=== PATIENT | female | born 1975 | race Caucasian/White ===

== ENCOUNTER 2021-05-19 19:18 | Emergency (ER) | payer OTHER ==
[2021-05-19 19:42] VITALS: BP 138/92; PULSE 82; TEMP 98.7; BMI 37.5
[2021-05-19] MEDS ORDERED: NAPROXEN 500 MG TABLET PO ONE (21:15)
[2021-05-19] MEDS ORDERED: NAPROXEN 500 MG TABLET ONE (21:20)
== END 2021-05-19 21:24 | disposition home or self-care (01) ==
LOC: FER 19:18
DX: S46.912A Strain of unspecified muscle, fascia and tendon at shoulder and upper arm level, left arm, initial encounter (principal); X50.0XXA Overexertion from strenuous movement or load, initial encounter
CPT/HCPCS: 73030-TC-LT-FY; 99283-25

== ENCOUNTER 2021-12-19 13:30 | Emergency (ER) | payer OTHER ==
[2021-12-19] MEDS ORDERED: KETOROLAC TROMETHAMINE 60 MG/2 ML VIAL IM ONE (13:53)
[2021-12-19] MEDS ORDERED: CYCLOBENZAPRINE HCL 10 MG TABLET (FP) PO ONE (13:54)
[2021-12-19 13:56] VITALS: BP 135/97; PULSE 73; RESP 18; TEMP 97.8; BMI 37.5
[2021-12-19] MEDS ORDERED: CYCLOBENZAPRINE HCL 5 MG TABLET ONE (13:57)
[2021-12-19] MEDS ORDERED: KETOROLAC TROMETHAMINE 60 MG/2 ML VIAL ONE (14:00)
== END 2021-12-19 14:50 | disposition home or self-care (01) ==
LOC: FER 13:30
PROC: 3E0233Z Introduction of Anti-inflammatory into Muscle, Percutaneous Approach (ICD-10-PCS; principal; 2021-12-19)
DX: M54.32 Sciatica, left side (principal)
CPT/HCPCS: 72100-TC-FY; 99284-25

== ENCOUNTER 2024-05-19 14:21 | Inpatient (IN) | payer OTHER ==
[2024-05-19 15:19] LABS: HEMATOCRIT 44.3 % (32.4-45.2); HEMOGLOBIN 15.1 G/dL (10.7-15.3); MCH 32.7 pg (25.7-33.7); MEAN PLT VOLUME 8.5 fl (7.5-11.1); PLATELET COUNT 321.4 10^3/uL (134-434); RBC 4.61 10^6/uL (3.60-5.2); RDW 13.7 % (11.6-15.6); WHITE BLOOD COUNT 14.7 10^3/uL (4.0-10.8)
[2024-05-19] MEDS ORDERED: ACETAMINOPHEN INJECTION 100 ML ONE ×2 (15:20→22:11)
[2024-05-19 15:28] LABS: INR 1.16 (0.83-1.09); PROTHROMBIN TIME (PATIENT) 13.2 SEC (9.7-13.0)
[2024-05-19 15:31] LABS: ACTIVATED PTT 36.6 SECONDS (25.2-36.5)
[2024-05-19 15:32] LABS: PLATELET ESTIMATE ADEQUATE
[2024-05-19 15:38] LABS: ALBUMIN 4.5 g/dl (3.4-5.0); ALK PHOS 60 U/L (45-117); ANION GAP 9 mmol/L (4-13); BILIRUBIN,TOTAL 0.6 mg/dl (0.2-1); CALCIUM 9.5 mg/dl (8.5-10.1); CHLORIDE 100 mmol/L (98-107); CO2 29 mmol/L (21-32); GLUCOSE,RANDOM 100 mg/dl (74-106); MAGNESIUM 2.3 mg/dL (1.8-2.4); SGOT/AST 13 U/L (15-37); SGPT/ALT 25 U/L (7-52); SODIUM 138 mmol/L (136-145); TOT PROT 7.2 g/dl (6.4-8.2)
[2024-05-19] MEDS: LACTATED RINGERS SOLUTION 1000 ML INFUS.BAG IV ONE (15:40)
[2024-05-19] MEDS: ACETAMINOPHEN 1000 MG/100 ML BAG IVPB ONE ×2 (15:40→22:16)
[2024-05-19] MEDS ORDERED: PIPERACILLIN/TAZOBACTAM 4.5 GM VIAL IVPB ONE (17:19)
[2024-05-19] MEDS: PIPERACILLIN/TAZOB 4.5 GM 4.5 GM in DEXTROSE 5%-WATER 100 ML IVPB ONE (17:39)
[2024-05-19] MEDS ORDERED: morphine SULFATE 4 MG/ML VIAL ONE (18:51)
[2024-05-19] MEDS: morphine CARPU-JECT 4 MG/1 ML DISP.SYRIN IVPUSH ONE (18:55)
[2024-05-20] MEDS: ceFAZolin SODIUM 1 GM VIAL IVPB ONE
[2024-05-20 02:47] VITALS: BMI 40.2
[2024-05-20] MEDS: SODIUM CHLORIDE 1,000 ML IV SCH (05:04)
[2024-05-20] MEDS: ACETAMINOPHEN 1000 MG/100 ML BAG IVPB PRN (05:05)
[2024-05-20] MEDS: ONDANSETRON 4 MG/2 ML VIAL IVPUSH PRN (05:05)
[2024-05-20] MEDS: PIPERACILLIN/TAZOB 3.375 GM 50 ML IVPB SCH (06:16)
[2024-05-20] MEDS: LEVOTHYROXINE NA 112 MCG TABLET (FP) PO SCH (06:16)
[2024-05-20 09:05] LABS: BASO % 0.3 % (0-2.0); EOS % 1.2 % (0-4.5); HEMATOCRIT 36.8 % (32.4-45.2); HEMOGLOBIN 12.4 GM/dL (10.7-15.3); LYMPH % 16.5 % (8-40); MCH 31.8 pg (25.7-33.7); MCHC 33.6 g/dl (32.0-36.0); MEAN CELL VOLUME 94.5 fl (80-96); MEAN PLT VOLUME 7.6 fl (7.5-11.1); MONO % 7.9 % (3.8-10.2); NEUT % 74.1 % (42.8-82.8); PLATELET COUNT 274 10^3/uL (134-434); RDW 13.3 % (11.6-15.6); WHITE BLOOD COUNT 11.4 K/mm3 (4.0-10.0)
[2024-05-20 09:09] LABS: INR 1.24 (0.83-1.09); PROTHROMBIN TIME (PATIENT) 13.6 SEC (9.7-13.0)
[2024-05-20 09:12] LABS: ACTIVATED PTT 31.6 SECONDS (25.2-36.5)
[2024-05-20 10:02] LABS: POTASSIUM 3.7 mmol/L (3.5-5.1)
[2024-05-20 10:03] LABS: CALCIUM 8.5 mg/dL (8.5-10.1)
[2024-05-20 10:07] LABS: CREATININE 0.8 mg/dL (0.55-1.3)
[2024-05-20] MEDS ORDERED: LIDOCAINE HCL/PF 2% SDV 5ML VIAL ONE (12:22)
[2024-05-20] MEDS ORDERED: MIDAZOLAM HCL 2 MG/2 ML SINGLE DOSE VIAL ONE (12:23)
[2024-05-20] MEDS ORDERED: ROCURONIUM BROMIDE 50 MG/5 ML SYRINGE ONE ×2 (12:27→15:26)
[2024-05-20] MEDS ORDERED: PROPOFOL 40 ML ONE (12:34)
[2024-05-20] MEDS: PIPERACILLIN/TAZOB 3.375 GM 3.375 GM in DEXTROSE 5%-WATER - 50 ML IVPB SCH (12:46)
[2024-05-20] MEDS ORDERED: SUCCINYLCHOLINE CHLORIDE 200 MG/10 ML SYRINGE ONE (12:55)
[2024-05-20] MEDS ORDERED: PHENYLEPHRINE HCL 10 MG/1 ML SINGLE DOSE VIAL ONE (13:01)
[2024-05-20] MEDS ORDERED: BUPIVACAINE HCL/PF 0.25% (2.5MG/ML) 10 ML VIAL ONE (13:02)
[2024-05-20] MEDS ORDERED: SUGAMMADEX SODIUM 200 MG/2 ML VIAL ONE ×2 (13:13→16:07)
[2024-05-20] MEDS ORDERED: cefOXitin SODIUM 2 GM VIAL (RESTRICTED TO ID) IVPB ONE (14:05)
[2024-05-20] MEDS: cefOXitin SODIUM 2 GM VIAL (RESTRICTED TO ID) IVPB ONE (14:06)
[2024-05-20] MEDS: BUPIVACAINE HCL/PF 0.25% (2.5MG/ML) 10 ML VIAL IJ ONE ×5 (14:18)
[2024-05-20] MEDS ORDERED: ePHEDrine SULFATE 50 MG/1 ML AMPULE ONE (15:20)
[2024-05-20] MEDS ORDERED: IBUPROFEN 800 MG/8 ML IJ IVPB PRN (16:57)
[2024-05-20] MEDS: LACTATED RINGERS SOLUTION 1,000 ML/1,000 ML INFUS.BAG IV SCH (17:03)
[2024-05-20] MEDS ORDERED: ONDANSETRON 4 MG/2 ML VIAL IVPUSH PRN (17:10)
[2024-05-20] MEDS: PIPERACILLIN/TAZOB 4.5 GM 4.5 GM/100 ML BAG IVPB SCH (17:11)
[2024-05-20] MEDS ORDERED: LACTATED RINGERS SOLUTION 1,000 ML IV SCH (17:15)
[2024-05-20] MEDS ORDERED: PIPERACILLIN/TAZOB 4.5 GM 4.5 GM/100 ML BAG IVPB SCH (18:00)
[2024-05-20] MEDS: oxyCODONE HCL 5 MG TABLET PO PRN (21:40)
[2024-05-21] MEDS: ACETAMINOPHEN 1000 MG/100 ML BAG IVPB SCH (02:00)
[2024-05-21] MEDS: oxyCODONE HCL 5 MG TABLET PO PRN ×2 (02:13→09:19)
[2024-05-21] MEDS: LEVOTHYROXINE NA 112 MCG TABLET (FP) PO SCH (06:15)
[2024-05-21] MEDS ORDERED: HYDROmorphone HCL CARPU-JECT 2 MG/1 ML DISP.SYRIN IVPB PRN (09:05)
[2024-05-21] MEDS ORDERED: oxyCODONE HCL 5 MG TABLET PO PRN (09:06)
[2024-05-21] MEDS: ENOXAPARIN NA (PORCINE) 40 MG/0.4 ML DISP.SYRIN SQ SCH (09:20)
[2024-05-21 09:29] LABS: BASO % 0.3 % (0-2.0); EOS % 0.1 % (0-4.5); HEMOGLOBIN 11.6 GM/dL (10.7-15.3); LYMPH % 12.3 % (8-40); MCH 30.9 pg (25.7-33.7); MCHC 32.2 g/dl (32.0-36.0); MEAN PLT VOLUME 7.6 fl (7.5-11.1); MONO % 8.1 % (3.8-10.2); NEUT % 79.2 % (42.8-82.8); PLATELET COUNT 316 10^3/uL (134-434); RBC 3.75 M/mm3 (3.60-5.2); RDW 13.2 % (11.6-15.6); WHITE BLOOD COUNT 13.9 K/mm3 (4.0-10.0)
[2024-05-21 09:53] LABS: POTASSIUM 4.1 mmol/L (3.5-5.1)
[2024-05-21 09:55] LABS: BLOOD UREA NITROGEN 9.7 mg/dL (7-18)
[2024-05-21 09:58] LABS: CREATININE 0.7 mg/dL (0.55-1.3)
[2024-05-21] MEDS: KETOROLAC TROMETHAMINE 15 MG/ML VIAL IVPUSH SCH (10:09)
[2024-05-21] MEDS: ONDANSETRON 4 MG/2 ML VIAL IVPUSH PRN (18:53)
[2024-05-22 09:57] LABS: BASO % 0.7 % (0-2.0); HEMATOCRIT 35.6 % (32.4-45.2); HEMOGLOBIN 12.2 GM/dL (10.7-15.3); LYMPH % 23.4 % (8-40); MCH 32.3 pg (25.7-33.7); MCHC 34.2 g/dl (32.0-36.0); MEAN CELL VOLUME 94.6 fl (80-96); MEAN PLT VOLUME 7.5 fl (7.5-11.1); MONO % 7.5 % (3.8-10.2); NEUT % 67.4 % (42.8-82.8); PLATELET COUNT 329 10^3/uL (134-434); RBC 3.76 M/mm3 (3.60-5.2); RDW 13.3 % (11.6-15.6)
[2024-05-22 10:03] LABS: HEMATOCRIT 34.8 % (32.4-45.2); HEMOGLOBIN 11.9 GM/dL (10.7-15.3); MCH 32.3 pg (25.7-33.7); MCHC 34.2 g/dl (32.0-36.0); MEAN CELL VOLUME 94.4 fl (80-96); MEAN PLT VOLUME 7.3 fl (7.5-11.1); PLATELET COUNT 316 10^3/uL (134-434); RBC 3.69 M/mm3 (3.60-5.2); RDW 13.2 % (11.6-15.6)
[2024-05-22 10:36] LABS: ALBUMIN 2.9 g/dl (3.4-5.0); BLOOD UREA NITROGEN 14.1 mg/dL (7-18); CALCIUM 8.8 mg/dL (8.5-10.1)
[2024-05-22 10:39] LABS: PHOSPHOROUS 2.8 mg/dL (2.5-4.9)
[2024-05-22 10:40] LABS: CREATININE 0.9 mg/dL (0.55-1.3)
[2024-05-22 10:41] LABS: BILIRUBIN,TOTAL 0.5 mg/dL (0.2-1); TOT PROT 6.2 g/dl (6.4-8.2)
[2024-05-22 15:15] VITALS: RESP 18
[2024-05-23 10:10] LABS: BASO % 0.8 % (0-2.0); EOS % 2.5 % (0-4.5); HEMATOCRIT 35.8 % (32.4-45.2); HEMOGLOBIN 12.2 GM/dL (10.7-15.3); LYMPH % 29.7 % (8-40); MCH 31.9 pg (25.7-33.7); MCHC 34.1 g/dl (32.0-36.0); MEAN CELL VOLUME 93.4 fl (80-96); MEAN PLT VOLUME 7.3 fl (7.5-11.1); MONO % 8.3 % (3.8-10.2); NEUT % 58.7 % (42.8-82.8); PLATELET COUNT 349 10^3/uL (134-434); RBC 3.83 M/mm3 (3.60-5.2); RDW 12.9 % (11.6-15.6); WHITE BLOOD COUNT 6.4 K/mm3 (4.0-10.0)
[2024-05-23] MEDS: POLYETHYLENE GLYCOL (HEALTHYLAX) 3350 17 GM PACKET PO SCH (10:26)
[2024-05-23 11:08] LABS: CALCIUM 9.1 mg/dL (8.5-10.1)
[2024-05-23 11:09] LABS: BLOOD UREA NITROGEN 9.7 mg/dL (7-18); MAGNESIUM 2.1 mg/dL (1.8-2.4)
[2024-05-23 11:12] LABS: PHOSPHOROUS 3.2 mg/dL (2.5-4.9)
[2024-05-23 11:13] LABS: BILIRUBIN,TOTAL 0.5 mg/dL (0.2-1); TOT PROT 6.3 g/dl (6.4-8.2)
[2024-05-23 11:15] LABS: POTASSIUM 3.7 mmol/L (3.5-5.1)
[2024-05-24] MEDS: ACETAMINOPHEN 1000 MG/100 ML BAG IVPB PRN (01:40)
[2024-05-24 09:09] VITALS: BP 108/83; PULSE 76; TEMP 98.1
[2024-05-24 10:13] LABS: BASO % 0.7 % (0-2.0); EOS % 3.5 % (0-4.5); HEMATOCRIT 37.9 % (32.4-45.2); HEMOGLOBIN 12.9 GM/dL (10.7-15.3); LYMPH % 21.9 % (8-40); MCH 32.2 pg (25.7-33.7); MCHC 34.2 g/dl (32.0-36.0); MONO % 6.8 % (3.8-10.2); NEUT % 67.1 % (42.8-82.8); PLATELET COUNT 374 10^3/uL (134-434); RBC 4.03 M/mm3 (3.60-5.2); RDW 12.8 % (11.6-15.6); WHITE BLOOD COUNT 6.6 K/mm3 (4.0-10.0)
[2024-05-24 10:18] LABS: HEMOGLOBIN 13.2 GM/dL (10.7-15.3); MCH 32.5 pg (25.7-33.7); MCHC 34.6 g/dl (32.0-36.0); MEAN CELL VOLUME 93.8 fl (80-96); MEAN PLT VOLUME 7.1 fl (7.5-11.1); PLATELET COUNT 381 10^3/uL (134-434); RBC 4.05 M/mm3 (3.60-5.2); RDW 12.8 % (11.6-15.6); WHITE BLOOD COUNT 6.8 K/mm3 (4.0-10.0)
[2024-05-24 10:38] LABS: POTASSIUM 3.8 mmol/L (3.5-5.1)
[2024-05-24 10:42] LABS: CALCIUM 9.2 mg/dL (8.5-10.1)
[2024-05-24 10:43] LABS: MAGNESIUM 2.2 mg/dL (1.8-2.4)
[2024-05-24 10:46] LABS: PHOSPHOROUS 3.2 mg/dL (2.5-4.9)
[2024-05-24 10:47] LABS: BILIRUBIN,TOTAL 0.3 mg/dL (0.2-1); TOT PROT 6.4 g/dl (6.4-8.2)
[2024-05-24] MEDS ORDERED: AMOX TR/POT CLAV 875MG/125MG TABLETS (FP) PO SCH (17:30)
== END 2024-05-24 13:18 | disposition home or self-care (01) | DRG 221 ==
LOC: FER 14:21 → J6S 05-20 02:00
PROVIDERS: ADMIT Internal Medicine; ATTEND Internal Medicine
PROC: 0DNU4ZZ Release Omentum, Percutaneous Endoscopic Approach (ICD-10-PCS; 2024-05-20)
PROC: 0DTA4ZZ Resection of Jejunum, Percutaneous Endoscopic Approach (ICD-10-PCS; principal; 2024-05-20 14:00)
DX: K57.00 Diverticulitis of small intestine with perforation and abscess without bleeding (principal); K21.9 Gastro-esophageal reflux disease without esophagitis; K57.92 Diverticulitis of intestine, part unspecified, without perforation or abscess without bleeding; E03.9 Hypothyroidism, unspecified; N92.0 Excessive and frequent menstruation with regular cycle
CPT/HCPCS: 0241U-QW; 36415; 74177-TC; 80048; 80053; 81003; 81015; 83605; 83690; 83735; 84100; 84703; 85025; 85027; 85610; 85730; 86140; 86850; 86900; 86901; 88307-TC; 94760; 99285-25; J0131; Q9967